=== PATIENT | female | born 1980 | race Caucasian/White ===

== ENCOUNTER → 2019-03-04 15:22 | Outpatient (CLI) | payer BC ==
[2019-03-04 15:57] LABS: BASOPHILS 0.3 % (0-2); EOSINOPHILS 1.1 % (0-7); HEMATOCRIT 41.4 % (36.0-48.0); HEMOGLOBIN 14.1 g/dL (12-16); LYMPHOCYTES 23.4 % (15-50); MCH 31.9 pg (26.0-34.0); MCHC 34.1 g/dL (31.0-37.0); MCV 93.7 fL (80.0-100.0); MEAN PLATELET VOLUME 10.1 fL (7.4-10.4); NEUTROPHILS 66.2 % (40-80); PLATELET COUNT 363 10x3/uL (130-400); RBC 4.42 10x6/uL (4.00-5.40); RDW 12.9 % (11.5-14.5); WBC 6.6 10x3/uL (4.8-10.8)
[2019-03-04 16:28] LABS: ALBUMIN 3.5 g/dL (3.4-5.0); ANION GAP 11.9 mmol/L (8-16); BILIRUBIN - TOTAL 0.32 mg/dL (0.2-1.3); CALCIUM 8.6 mg/dL (8.5-10.1); CARBON DIOXIDE 29.1 mmol/L (21.0-32.0); CREATININE - SERUM 0.9 mg/dL (0.6-1.3)
[2019-03-04 17:06] LABS: ERYTHROCYTE SEDIMENTATION RATE 22 mm/hr (0-20)
== END | disposition home or self-care (01) ==
LOC: D.LAB 15:22
PROVIDERS: ATTEND Internal Medicine Gastroenterology
DX: K51.90 Ulcerative colitis, unspecified, without complications (principal)

== ENCOUNTER → 2019-03-09 08:25 | Outpatient (CLI) | payer BC ==
[2019-03-10 08:11] LABS: HEPATITIS C ANTIBODY 0.2 S/CO RAT (0.0-0.9)
== END | disposition home or self-care (01) ==
LOC: D.LAB 08:25 → D.US 09:00
PROVIDERS: ATTEND Internal Medicine Gastroenterology
DX: R74.9 Abnormal serum enzyme level, unspecified (principal)

== ENCOUNTER → 2020-08-14 17:14 | Outpatient (CLI) | payer BC | END | disposition home or self-care (01) | LOC: D.LAB 17:14 | PROVIDERS: ATTEND Internal Medicine Gastroenterology | DX: K51.90 Ulcerative colitis, unspecified, without complications (principal) ==